=== PATIENT | male | born 1965 ===

== ENCOUNTER 2016-09-22 18:59 | Observation (INO) | payer OTHER ==
[2016-09-22 19:00] VITALS: BMI 31.6
[2016-09-22 20:15] VITALS: BP 120/76; PULSE 70; RESP 16; TEMP 97.4; O2SAT 100
[2016-09-22] MEDS ORDERED: Iohexol 240 (50 ml) PO ONE (20:32)
[2016-09-22] MEDS ORDERED: Sodium Chloride 0.9% 1,000 ML IV STA (20:33)
[2016-09-22] MEDS ORDERED: Iohexol 240 (50 ml) ONE (21:14)
[2016-09-22 21:44] LABS: BASO # 0.1 K/uL (0.0-0.2); BASO % 0.9 % (0.0-2.0); EOS # 0.7 K/uL (0.0-0.7); LYMPH % 43.2 % (20.0-40.0); MEAN CELL VOLUME 91.9 fl (80.0-94.0); MEAN CORPUSCULAR HEMOGLOBIN 31.7 pg (27.0-31.0); MEAN CORPUSCULAR HGB CONC 34.5 g/dL (33.0-37.0); MEAN PLATELET VOLUME 8.9 fl (7.2-11.7); MONO # 0.5 K/uL (0.0-0.8); MONO % 5.9 % (0.0-10.0); NEUT # 3.8 K/uL (1.8-7.0); NRBC % 0.1 % (0.0-0.0); RED CELL DISTRIBUTION WIDTH 12.9 % (11.5-14.5); WHITE BLOOD COUNT 9.1 K/uL (4.8-10.8)
[2016-09-22 21:50] LABS: RBC URINE 2 /hpf (0-3); URINE BILIRUBIN NEGATIVE (NEGATIVE); URINE BLOOD NEGATIVE (NEGATIVE); URINE COLOR STRAW (YELLOW); URINE GLUCOSE (UA) NEG (Normal); URINE KETONE NEGATIVE (NEGATIVE); URINE LEUKOCYTE ESTERASE NEG Leu/uL (Negative); URINE PROTEIN NEGATIVE (NEGATIVE); URINE UROBILINOGEN 0.2-1.0 mg/dL (0.2-1.0); WBC URINE 1 /hpf (0-5)
[2016-09-22 21:52] LABS: ALB/GLOB RATIO 1.2 (1.0-2.1); ALKALINE PHOSPHATASE 96 U/L (38-126); ALT/SGPT 35 U/L (21-72); AST/SGOT 31 U/L (17-59); BILIRUBIN,TOTAL 0.8 mg/dl (0.2-1.3); BLOOD UREA NITROGEN 17 mg/dl (9-20); CALCIUM 8.4 mg/dL (8.4-10.2); CARBON DIOXIDE 23 mmol/L (22-30); CHLORIDE 105 mmol/L (98-107); GFR AFRICAN-AMERICAN > 60; GLUCOSE,RANDOM 94 mg/dL (75-110); LIPASE 85 U/L (23-300); POTASSIUM 3.9 MMOL/L (3.6-5.0); SODIUM 137 mmol/l (132-148); TOTAL PROTEIN 7.6 G/DL (6.3-8.2)
--- NOTE | 2016-09-22 22:07 | ED PDOC ---
HPI:Nausea, Vomiting, Diarrhea Time Seen by Provider: 09/22/16 20:20 Chief Complaint (Nursing): GI Problem Chief Complaint (Provider): Vomiting/Diarrhea History Per: Patient History/Exam Limitations: no limitations Onset/Duration Of Symptoms: Days (x2) Current Symptoms Are (Timing): Still Present Associated Symptoms: Vomiting, Diarrhea Additional Complaint(s): 51 year old male presents to ED with complaints of diarrhea and vomiting x2 days. Notes that he had x2 episodes of hematochezia today and vomited x1 episode with a small amount of blood yesterday. (-) nausea, (+) LLQ pain that radiates across entire abdomen and bilateral back pain. PCP: FAMILY PROVIDER,NO Past Medical History Reviewed: Historical Data, Nursing Documentation, Vital Signs Vital Signs: Last Vital Signs Temp 97.4 F L 09/22/16 20:13 Pulse 70 09/22/16 20:13 Resp 16 09/22/16 20:13 BP 120/76 09/22/16 20:13 Pulse Ox 100 09/22/16 20:13 - Medical History PMH: No Chronic Diseases Denies: Chronic Kidney Disease - Surgical History Surgical History: No Surg Hx - Family History Family History: States: No Known Family Hx - Home Medications Home Medications: Ambulatory Orders Medication Instructions Recorded Dicyclomine [Bentyl] 10 mg PO QID #20 cap 09/23/16 Omeprazole 20 mg PO DAILY #30 ecc 09/23/16 - Allergies Allergies/Adverse Reactions: Allergies Allergy/AdvReac Type Severity Reaction Status Date / Time No Known Allergies Allergy Verified 09/22/16 20:13 Review of Systems ROS Statement: Except As Marked, All Systems Reviewed And Found Negative Gastrointestinal: Positive for: Vomiting (with small amount of blood), Abdominal Pain (LLQ pain radiating across entire abdomen), Diarrhea, Hematochezia. Negative for: Nausea Musculoskeletal: Positive for: Back Pain (bilateral) Physical Exam - Reviewed Nursing Documentation Reviewed: Yes Vital Signs Reviewed: Yes - Physical Exam Appears: Positive for: Non-toxic, No Acute Distress (Obese) Head Exam: Positive for: ATRAUMATIC Skin: Positive for: Normal Color Eye Exam: Positive for: Normal appearance ENT: Positive for: Normal ENT Inspection Neck: Positive for: Normal Cardiovascular/Chest: Positive for: Regular Rate, Rhythm. Negative for: Murmur Respiratory: Positive for: Normal Breath Sounds. Negative for: Respiratory Distress Gastrointestinal/Abdominal: Positive for: Soft, Tenderness (mild LLQ tenderness) Extremity: Positive for: Normal ROM. Negative for: Deformity Neurologic/Psych: Positive for: Alert, Oriented. Negative for: Motor/Sensory Deficits - Laboratory Results Result Diagrams: 09/22/16 21:30 09/22/16 21:30 - ECG O2 Sat by Pulse Oximetry: 100 (RA) Pulse Ox Interpretation: Normal Medical Decision Making Medical Decision Makin Initial impression: diverticulitis v diverticulosis Initial plan: * CTA A/P * Labs * Lipase * Morphine 2mg IVP * Morphine 2mg IVP * NS IV * Iohexol 50mL PO * Protonix Inj 40mg IVP * Admit ED OBS * UA 2347: CT A/P impression: 1. 4 mm pleural based nodule left lower lobe. This is unchanged. For low-risk patients, no follow-up is necessary. For high-risk patients (smoking history or other known risk factors) recommend CT at 12 months and if unchanged, no further follow-up. 2. Gallstones. Gallbladder otherwise unremarkable. 3. Bladder wall is mildly prominent in thickness which may be due to its decompressed state or due to cystitis. 0055: Patient feeling better and stable for d/c. Advised patient to f/u in the clinic and patient was given a copy of the CT report. Return to the ED for worsening or concerning symptoms. Instructed patient to urgently f/u for colonoscopy. Patient states he has been taking ibuprofen every night recently because of joint pain. Advised patient to stop taking NSAIDs and take Tylenol instead. Scribe Attestation: Documented by Areli Collins acting as a scribe for Ben Oliveira MD. Scribe Attestation: All medical record entries made by the Scribe were at my direction and personally dictated by me. I have reviewed the chart and agree that the record accurately reflects my personal performance of the history, physical exam, medical decision making, and the department course for this patient. I have also personally directed, reviewed, and agree with the discharge instructions and disposition. ED OBSERVATION Date of observation admission: 09/22/16 Time of observation admission: 20:48 - Observation admission statement Patient is being placed in observation because:: Pending CTA A/P - Goals of Observation Goals of observation are:: CT results Disposition - Clinical Impression Clinical Impression: Abdominal pain, GI bleed - Patient ED Disposition Is Patient to be Admitted: No Counseled Patient/Family Regarding: Studies Performed, Diagnosis, Need For Followup - Disposition Disposition: Routine/Home Disposition Time: 00:58 Condition: STABLE
[2016-09-22] MEDS ORDERED: Sodium Chloride 0.9% 50 ML IV ONE (23:05)
[2016-09-22] MEDS ORDERED: Iohexol 300 100 ML IJ ONE (23:05)
--- NOTE | 2016-09-23 08:48 | CT ---
PROCEDURE: CT Abdomen and Pelvis with contrast HISTORY: LLQ pain radiating to R, blood in stool COMPARISON: 04/15/2016 CT abdomen and pelvis and abdominal ultrasound. TECHNIQUE: Contrast dose: 95 cc Omnipaque 300 Radiation dose: Total exam DLP = 1001.36 MGy-cm. This CT exam was performed using one or more of the following dose reduction techniques: Automated exposure control, adjustment of the mA and/or kV according to patient size, and/or use of iterative reconstruction technique. FINDINGS: LOWER THORAX: No significant interval change compared to the prior examination(s). LIVER: Unremarkable. No gross lesion or ductal dilatation. GALLBLADDER AND BILE DUCTS: Cholelithiasis without CT evidence of acute cholecystitis. PANCREAS: Unremarkable. No gross lesion or ductal dilatation. SPLEEN: Unremarkable. ADRENALS: Unremarkable. No mass. KIDNEYS AND URETERS: Unremarkable. No hydronephrosis. No solid mass. VASCULATURE: Unremarkable. No aortic aneurysm. BOWEL: Unremarkable. No obstruction. No gross mural thickening. APPENDIX: Normal appendix. PERITONEUM: Unremarkable. No free fluid. No free air. LYMPH NODES: Unremarkable. No enlarged lymph nodes. BLADDER: Unremarkable. REPRODUCTIVE: Unremarkable. BONES: No acute fracture. OTHER FINDINGS: None. IMPRESSION: Cholelithiasis without CT evidence of acute cholecystitis. No significant interval change compared to the prior examination(s). Concordant results (preliminary interpretation) provided by [facility]. Procedure Completed: 23:24 Preliminary ([facility]) Report: Dictated and Authenticated: 23:47 Final Interpretation: 08:46. September 23, 2016.
== END 2016-09-23 00:50 | disposition home or self-care (01) ==
LOC: H.ER 18:59 → H.EROBSV 20:48
PROVIDERS: ADMIT Emergency Medicine; ATTEND Emergency Medicine
DX: R10.9 Unspecified abdominal pain (principal); K92.2 Gastrointestinal hemorrhage, unspecified

== ENCOUNTER 2017-07-27 20:05 | Emergency (ER) | payer OTHER ==
[2017-07-27 20:06] VITALS: BMI 31.6
[2017-07-27 20:27] VITALS: RESP 16
[2017-07-27] MEDS ORDERED: Sodium Chloride 0.9% 1,000 ML IV STA (21:42)
[2017-07-27] MEDS ORDERED: Morphine 4 MG/ML VIAL ONE (21:49)
[2017-07-27 22:20] LABS: BASO # 0.1 K/uL (0.0-0.2); BASO % 0.9 % (0.0-2.0); EOS # 0.1 K/uL (0.0-0.7); EOS % 1.4 % (0.0-4.0); HEMOGLOBIN 14.7 g/dL (12.0-18.0); LYMPH # 4.1 K/uL (1.0-4.3); LYMPH % 39.3 % (20.0-40.0); MEAN CELL VOLUME 91.7 fl (80.0-94.0); MEAN CORPUSCULAR HEMOGLOBIN 31.7 pg (27.0-31.0); MEAN CORPUSCULAR HGB CONC 34.5 g/dL (33.0-37.0); MEAN PLATELET VOLUME 8.6 fl (7.2-11.7); MONO # 0.7 K/uL (0.0-0.8); MONO % 6.3 % (0.0-10.0); NEUT # 5.4 K/uL (1.8-7.0); NEUT % 52.1 % (50.0-75.0); NRBC % 0.2 % (0.0-0.0); RBC 4.63 Mil/uL (4.40-5.90); RED CELL DISTRIBUTION WIDTH 12.5 % (11.5-14.5); WHITE BLOOD COUNT 10.4 K/uL (4.8-10.8)
--- NOTE | 2017-07-27 22:20 | ED PDOC ---
HPI: Abdomen Time Seen by Provider: 07/27/17 21:11 Chief Complaint (Nursing): Abdominal Pain Chief Complaint (Provider): Abdominal Pain History Per: Patient History/Exam Limitations: no limitations Onset/Duration Of Symptoms: Days (x2 weeks) Current Symptoms Are (Timing): Still Present Additional Complaint(s): 51 y/o male with a past medical history of gastritis, who presents to the ED complaining of RUQ and epigastric pain x2 weeks. Patient states pain is worse today and is non-radiating. Reports a few episodes of vomiting over the past 2 weeks, but none today. Reports constipation x2 days. Denies fever. Patient states he knows he has gallbladder stones and reports a history of gallbladder problems in the past. Of Note, patient reports seeing Dr. Mccollum as GI in the past. Also reports having a colonoscopy and endoscopy done recently. Past Medical History Reviewed: Historical Data, Nursing Documentation, Vital Signs Vital Signs: Last Vital Signs Temp 97.7 F 07/28/17 00:52 Pulse 67 07/28/17 00:52 Resp 16 07/28/17 00:52 BP 126/69 07/28/17 00:52 Pulse Ox 100 07/28/17 01:18 - Medical History PMH: Gastritis Denies: Chronic Kidney Disease - Surgical History Surgical History: No Surg Hx - Family History Family History: States: Unknown Family Hx - Home Medications Home Medications: Ambulatory Orders Medication Instructions Recorded Acetaminophen [Pain Reliever] 500 mg PO Q4 #30 tablet 09/23/16 Dicyclomine [Bentyl] 10 mg PO QID #20 cap 09/23/16 Omeprazole 20 mg PO DAILY #30 ecc 09/23/16 Famotidine [Pepcid] 20 mg PO Q12 #14 tab 03/11/17 Acetaminophen [Pain Reliever] 500 mg PO Q4 #30 tablet 07/28/17 Famotidine [Pepcid] 20 mg PO BID #20 tab 07/28/17 Omeprazole 20 mg PO DAILY #30 capsule. 07/28/17 - Allergies Allergies/Adverse Reactions: Allergies Allergy/AdvReac Type Severity Reaction Status Date / Time No Known Allergies Allergy Verified 07/27/17 20:26 Review of Systems ROS Statement: Except As Marked, All Systems Reviewed And Found Negative Constitutional: Negative for: Fever Gastrointestinal: Positive for: Vomiting, Abdominal Pain, Constipation Physical Exam - Reviewed Nursing Documentation Reviewed: Yes Vital Signs Reviewed: Yes - Physical Exam Appears: Positive for: Non-toxic, No Acute Distress Head Exam: Positive for: ATRAUMATIC, NORMAL INSPECTION, NORMOCEPHALIC Skin: Positive for: Normal Color, Warm, Dry. Negative for: Rash Eye Exam: Positive for: EOMI, Normal appearance, PERRL ENT: Positive for: Normal ENT Inspection Neck: Positive for: Normal, Painless ROM, Supple Cardiovascular/Chest: Positive for: Regular Rate, Rhythm. Negative for: Murmur Respiratory: Positive for: Normal Breath Sounds. Negative for: Respiratory Distress Gastrointestinal/Abdominal: Positive for: Tenderness (RUQ and epigastric) Back: Positive for: Normal Inspection. Negative for: L CVA Tenderness, R CVA Tenderness, Vertebral Tenderness Extremity: Positive for: Normal ROM. Negative for: Pedal Edema, Deformity Neurologic/Psych: Positive for: Alert, Oriented. Negative for: Motor/Sensory Deficits - Laboratory Results Result Diagrams: 07/27/17 22:15 07/27/17 22:15 - ECG O2 Sat by Pulse Oximetry: 100 (RA) Pulse Ox Interpretation: Normal Medical Decision Making Medical Decision Making: Time: 21:42 Initial Impression: Abdominal pain. Differential diagnoses include, but are not limited to acute cholecystitis, pancreatitis, gastritis, and other conditions which will be considered. Initial Plan: --EKG --BMP --Troponin I --CBC w/ differential --CXR --addiction social worker --Reevaluation Time: 22:26 US ABDOMEN FINDINGS: Liver: Fatty infiltration. No mass. No intrahepatic ductal dilatation. Gallbladder: Contracted. Gallstones. No definite wall thickening. No pericholecystic fluid. No sonographic Eduardo's sign. Common bile duct: No dilatation. No stones. Pancreas: Unremarkable as visualized. Right kidney: Normal echogenicity. No hydronephrosis. IMPRESSION: 1. Cholelithiasis. 2. Incidental/non-acute findings are described above. Time: 00:00 Patient signed out to Dr. Oliveira pending abdominal CT. Scribe Attestation: Documented by Loco Parks, acting as a scribe for Ced Olson MD. Provider Scribe Attestation: All medical record entries made by the Scribe were at my direction and personally dictated by me. I have reviewed the chart and agree that the record accurately reflects my personal performance of the history, physical exam, medical decision making, and the department course for this patient. I have also personally directed, reviewed, and agree with the discharge instructions and disposition. Disposition - Clinical Impression Clinical Impression: Gastritis, Cholelithiasis - Patient ED Disposition Is Patient to be Admitted: Transfer of Care Counseled Patient/Family Regarding: Studies Performed, Diagnosis - Disposition Referrals: [facility] [Outside] Ben Kingsley MD [Family Provider] - Disposition: Transfer of Care Disposition Time: 00:00 Condition: STABLE Prescriptions: Acetaminophen [Pain Reliever] 500 mg PO Q4 #30 tablet Famotidine [Pepcid] 20 mg PO BID #20 tab Omeprazole 20 mg PO DAILY #30 capsule.dr Instructions: Gastritis, Gallstones Forms: [facility] (Nepali) Print Language: ANGUILLAN Patient Signed Over To: Ben Oliveira Handoff Comments: pending abdominal CT
--- NOTE | 2017-07-27 22:26 | US ---
EXAM: US Abdomen Limited, Right Upper Quadrant CLINICAL HISTORY: 51 years old, male; Pain; Abdominal pain; Epigastric; Additional info: Ruq pain TECHNIQUE: Real-time ultrasound of the right upper quadrant with image documentation. COMPARISON: No relevant prior studies available. FINDINGS: Liver: Fatty infiltration. No mass. No intrahepatic ductal dilatation. Gallbladder: Contracted. Gallstones. No definite wall thickening. No pericholecystic fluid. No sonographic Eduardo's sign. Common bile duct: No dilatation. No stones. Pancreas: Unremarkable as visualized. Right kidney: Normal echogenicity. No hydronephrosis. IMPRESSION: 1. Cholelithiasis. 2. Incidental/non-acute findings are described above.
[2017-07-27 22:29] LABS: ALB/GLOB RATIO 1.1 (1.0-2.1); ALBUMIN 4.1 g/dL (3.5-5.0); GFR AFRICAN-AMERICAN > 60; GFR NON-AFRICAN AMERICAN > 60; LIPASE 80 U/L (23-300)
[2017-07-27 22:31] LABS: ALT/SGPT 49 U/L (21-72); AST/SGOT 27 U/L (17-59); BLOOD UREA NITROGEN 21 mg/dl (9-20)
[2017-07-27] MEDS ORDERED: Alum-Mag Hydrox-Simethicone Susp (30 mL) PO ONE (22:42)
[2017-07-27] MEDS ORDERED: Alum-Mag Hydrox-Simethicone Susp (30 mL) ONE (23:01)
[2017-07-27] MEDS ORDERED: Sodium Chloride 0.9% 100 ML ONE (23:17)
[2017-07-27] MEDS ORDERED: Iohexol 300 100 ML IJ ONE (23:17)
--- NOTE | 2017-07-28 00:21 | ED PDOC ---
"- Laboratory Results Result Diagrams: 07/27/17 22:15 07/27/17 22:15 - ECG O2 Sat by Pulse Oximetry: 100 (RA) Pulse Ox Interpretation: Normal Medical Decision Making Medical Decision Making: Time: 00:00 Patient signed out to me by pending abdominal CT. 1:00 COMPARISON: CT - ABD PELVIS IV CONTRAST ONLY 2017-03-11 00:13 FINDINGS: Lower thorax: Minimal atelectasis. RLL calcified granuloma. 0.5 cm LEFT lower lobe nodule, stable. ABDOMEN: Liver: Fatty infiltration. Tiny calcification. Gallbladder and bile ducts: Noncalcified gallstones. No significant ductal dilation. Pancreas: No ductal dilation. No mass. Spleen: No splenomegaly. Adrenals: Myelolipoma of RIGHT adrenal gland. Kidneys and ureters: No mass. No hydronephrosis. Stomach and bowel: No definite mural thickening. No obstruction. Appendix: Normal caliber. No inflammation. PELVIS: Bladder: Unremarkable. Reproductive: Enlarged prostate gland. ABDOMEN and PELVIS: Intraperitoneal space: No significant fluid collection. No free air. ZEFERINO JOHN | Final Radiology Report CONFIDENTIALITY STATEMENT This report is intended only for use by the referring physician, and only in accordance with law. If you received this in error, call [phone]. Page 2 of 2 Bones/joints: No acute fracture. Soft tissues: Tiny umbilical hernia containing fat. Vasculature: Minimal atherosclerotic disease of iliac arteries. No aneurysm. Lymph nodes: No pathologically enlarged lymph nodes. IMPRESSION: 1. No definite acute intraabdominal abnormality. 2. Prostate enlargement. Followup as clinically warranted. 3. Incidental/non-acute findings are described above. Thank you for allowing us to participate in the care of your patient. Dictated and Authenticated by: Brice Nesbitt MD 07/28/2017 12:30 AM Eastern Time ([place] & [place]) Patient resting comfortably, states he his pain improved. Advised to followup with Dr. Mccollum regarding gallstones. Patient has hx of gastritis, will encourage pepcid for gastritis and followup with [facility] clinic tomorrow. Patient tolerating PO, steady gait. Scribe Attestation: Documented by Juan Oreilly, acting as a scribe for Ben Oliveira MD Provider Scribe Attestation: All medical record entries made by the Scribe were at my direction and personally dictated by me. I have reviewed the chart and agree that the record accurately reflects my personal performance of the history, physical exam, medical decision making, and the department course for this patient. I have also personally directed, reviewed, and agree with the discharge instructions and disposition. Disposition - Clinical Impression Clinical Impression: Gastritis, Cholelithiasis - POA Present On Arrival: None - Disposition Referrals: [facility] [Outside] Ben Kingsley MD [Family Provider] - Disposition: Routine/Home Disposition Time: 01:17 Condition: IMPROVED Prescriptions: Acetaminophen [Pain Reliever] 500 mg PO Q4 #30 tablet Famotidine [Pepcid] 20 mg PO BID #20 tab Omeprazole 20 mg PO DAILY #30 capsule. Instructions: Gastritis, Gallstones Forms: [employer] (Urdu) Print Language: KENYAN"
--- NOTE | 2017-07-28 00:31 | CT ---
EXAM: CT Abdomen and Pelvis With Intravenous Contrast CLINICAL HISTORY: 51 years old, male; Pain; Abdominal pain; Generalized TECHNIQUE: Axial computed tomography images of the abdomen and pelvis with intravenous contrast. All CT scans at this facility use one or more dose reduction techniques, viz.: automated exposure control; ma/kV adjustment per patient size (including targeted exams where dose is matched to indication; i.e. head); or iterative reconstruction technique. Coronal and sagittal reformatted images were created and reviewed. CONTRAST: 95 mL of omniaue 300 administered intravenously. COMPARISON: CT - ABD PELVIS IV CONTRAST ONLY 2017-03-11 00:13 FINDINGS: Lower thorax: Minimal atelectasis. RLL calcified granuloma. 0.5 cm LEFT lower lobe nodule, stable. ABDOMEN: Liver: Fatty infiltration. Tiny calcification. Gallbladder and bile ducts: Noncalcified gallstones. No significant ductal dilation. Pancreas: No ductal dilation. No mass. Spleen: No splenomegaly. Adrenals: Myelolipoma of RIGHT adrenal gland. Kidneys and ureters: No mass. No hydronephrosis. Stomach and bowel: No definite mural thickening. No obstruction. Appendix: Normal caliber. No inflammation. PELVIS: Bladder: Unremarkable. Reproductive: Enlarged prostate gland. ABDOMEN and PELVIS: Intraperitoneal space: No significant fluid collection. No free air. Bones/joints: No acute fracture. Soft tissues: Tiny umbilical hernia containing fat. Vasculature: Minimal atherosclerotic disease of iliac arteries. No aneurysm. Lymph nodes: No pathologically enlarged lymph nodes. IMPRESSION: 1. No definite acute intraabdominal abnormality. 2. Prostate enlargement. Followup as clinically warranted. 3. Incidental/non-acute findings are described above.
[2017-07-28 00:52] VITALS: BP 126/69; PULSE 67; TEMP 97.7
[2017-07-28 01:17] VITALS: O2SAT 100
--- NOTE | 2017-07-28 11:59 | CARD ---
APPROVED REPORT EKG Measurement Heart [id number] <Conclusion> Normal sinus rhythm Possible Left atrial enlargement Nonspecific T wave abnormality Abnormal ECG
== END 2017-07-28 02:08 | disposition home or self-care (01) ==
LOC: H.ER 20:05
DX: K29.70 Gastritis, unspecified, without bleeding (principal); K80.20 Calculus of gallbladder without cholecystitis without obstruction; K76.0 Fatty (change of) liver, not elsewhere classified; N40.0 Benign prostatic hyperplasia without lower urinary tract symptoms
CPT/HCPCS: 74177; 76705; 80053; 83690; 85025; 87040; 93005; 96374; 96375; 99284; J2270; J7040; Q9967

== ENCOUNTER 2017-08-18 16:30 | Emergency (ER) | payer SELFPAY ==
[2017-08-18 16:30] VITALS: BMI 31.6
[2017-08-18 16:40] VITALS: RESP 16; O2SAT 100
--- NOTE | 2017-08-18 19:23 | ED PDOC ---
HPI: Abdomen Time Seen by Provider: 08/18/17 19:04 Chief Complaint (Nursing): Abdominal Pain Chief Complaint (Provider): Abdominal pain History Per: Patient History/Exam Limitations: no limitations Onset/Duration Of Symptoms: Days (x1 week) Current Symptoms Are (Timing): Still Present Location Of Pain/Discomfort: Diffuse Quality Of Discomfort: Cramping Associated Symptoms: Vomiting (x2), Diarrhea (x3). denies: Urinary Symptoms Additional Complaint(s): Maxi Heller is a 51 year old male, with a past medical history of pre- diabetes, who presents to the emergency department for evaluation of crampy diffuse abdominal pain for the past week. Patient reports he had x3 episodes of diarrhea and x2 episodes of nonbloody, nonbilious vomiting during this time. He states today his stool was dark, which prompted concern for ED visit. 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 He denies any abdominal surgeries, fever, chills, recent travel, sick contacts, rash, chest pain, SOB, cough, or urinary symptoms. No further medical complaints. PMD: None provided Past Medical History Reviewed: Historical Data, Nursing Documentation, Vital Signs Vital Signs: Last Vital Signs Temp 97.7 F 08/18/17 16:37 Pulse 104 H 08/18/17 16:37 Resp 16 08/18/17 16:37 BP 126/80 08/18/17 16:37 Pulse Ox 100 08/18/17 19:35 - Medical History PMH: Diabetes (pre-diabetes), Gastritis Denies: Chronic Kidney Disease - Surgical History Other surgeries: right shoulder and left knee procedure - Family History Family History: States: Unknown Family Hx - Social History Current smoker - smoking cessation education provided: Yes (4 cigarettes per day ) Alcohol: None Drugs: Denies - Home Medications Home Medications: Ambulatory Orders Medication Instructions Recorded Acetaminophen [Pain Reliever] 500 mg PO Q4 #30 tablet 09/23/16 Dicyclomine [Bentyl] 10 mg PO QID #20 cap 09/23/16 Omeprazole 20 mg PO DAILY #30 ecc 09/23/16 Famotidine [Pepcid] 20 mg PO Q12 #14 tab 03/11/17 Acetaminophen [Pain Reliever] 500 mg PO Q4 #30 tablet 07/28/17 Famotidine [Pepcid] 20 mg PO BID #20 tab 07/28/17 Omeprazole 20 mg PO DAILY #30 capsule. 07/28/17 - Allergies Allergies/Adverse Reactions: Allergies Allergy/AdvReac Type Severity Reaction Status Date / Time No Known Allergies Allergy Verified 07/27/17 20:26 Review of Systems ROS Statement: Except As Marked, All Systems Reviewed And Found Negative Constitutional: Negative for: Fever, Chills Gastrointestinal: Positive for: Vomiting (x2), Abdominal Pain (diffused cramp), Diarrhea (x3), Other (dark stool) Genitourinary Male: Negative for: Dysuria, Frequency, Incontinence Physical Exam - Reviewed Nursing Documentation Reviewed: Yes Vital Signs Reviewed: Yes - Physical Exam Rectal: Positive for: Rectal Tone Is: (firm), Blood Streaked Stool, Hemorrhoids (external, nonthrombosed to 2-6oclock position (-) tenderness), Other (Pawan, ED RN, chaperoned by entire rectal examination) Comments: GENERAL APPEARANCE: Patient is awake, alert, oriented x 3, in mild painful distress. Non-toxic appearing. SKIN: Warm, dry; (-) cyanosis. EYES: (-) conjunctival pallor, (-) scleral icterus. ENMT: Mucous membranes moist. NECK: Supple, FROM (-) tenderness, (-) stiffness CHEST AND RESPIRATORY: CTA B/L ; (-) rales, (-) rhonchi, (-) wheezes; breath sounds equal bilaterally, even and unlabored. HEART AND CARDIOVASCULAR: (-) irregularity; (-) murmur, (-) gallop. ABDOMEN AND GI: (-) distention. Bowel sounds active x4; [+] tenderness in 4 quadrants. (+) guarding on LLQ and LUQ, (-) rebound, (-) palpable masses, (-) CVA tenderness EXTREMITIES: (-) deformity, (-) edema, (+) distal pulses. NEURO AND PSYCH: Mental status as above; (-) focal findings. - Laboratory Results Result Diagrams: 08/18/17 19:30 08/18/17 19:30 - ECG O2 Sat by Pulse Oximetry: 100 (RA) Pulse Ox Interpretation: Normal Medical Decision Making Medical Decision Making: Initial Impression: Abdominal pain, vomiting and diarrhea. Initial Plan: --Abd Pelvis PO & IV contrast [CT] --CMP --Lipase --Urine dipstick --CBC w/ differential --Bentyl 20 mg PO --Pepcid 40 mg IVP --Toradol 30 mg IVP --Zofran ODT 8 mg PO --Occult blood, stool --Reevaluation 20:00 -Patient's care will be transferred to Colby Barber PA-C, pending CT/lab results, re-evaluation, and further disposition. Scribe Attestation: Documented by Patrick Briseno, acting as a scribe for Nel Feng PA-C Provider Scribe Attestation: All medical record entries made by the Scribe were at my direction and personally dictated by me. I have reviewed the chart and agree that the record accurately reflects my personal performance of the history, physical exam, medical decision making, and the department course for this patient. I have also personally directed, reviewed, and agree with the discharge instructions and disposition. Disposition - Clinical Impression Clinical Impression: Abdominal pain, Vomiting, Diarrhea - Patient ED Disposition Is Patient to be Admitted: Transfer of Care (Jailene Barber PA-C pending lab/ CT results and re-evaluation.) - Disposition Disposition: Transfer of Care Disposition Time: 20:00 Condition: FAIR Forms: [employer] (Kyrgyz)
[2017-08-18] MEDS ORDERED: Iohexol 240 (50 ml) PO STA (19:36)
[2017-08-18] MEDS ORDERED: Iohexol 240 (50 ml) ONE (19:38)
[2017-08-18 20:00] LABS: BASO # 0.1 K/uL (0.0-0.2); BASO % 0.7 % (0.0-2.0); EOS # 0.2 K/uL (0.0-0.7); EOS % 1.7 % (0.0-4.0); HEMOGLOBIN 14.3 g/dL (12.0-18.0); LYMPH # 3.9 K/uL (1.0-4.3); MEAN CELL VOLUME 91.3 fl (80.0-94.0); MEAN CORPUSCULAR HEMOGLOBIN 32.2 pg (27.0-31.0); MEAN CORPUSCULAR HGB CONC 35.2 g/dL (33.0-37.0); MEAN PLATELET VOLUME 8.7 fl (7.2-11.7); MONO # 0.5 K/uL (0.0-0.8); NEUT # 4.4 K/uL (1.8-7.0); NEUT % 48.6 % (50.0-75.0); NRBC % 0.2 % (0.0-0.0); RBC 4.44 Mil/uL (4.40-5.90); RED CELL DISTRIBUTION WIDTH 12.6 % (11.5-14.5)
[2017-08-18 20:09] LABS: ALBUMIN 3.9 g/dL (3.5-5.0); ALT/SGPT 53 U/L (21-72); AST/SGOT 30 U/L (17-59); BLOOD UREA NITROGEN 23 mg/dl (9-20); CALCIUM 8.7 mg/dL (8.4-10.2); GFR AFRICAN-AMERICAN > 60; GFR NON-AFRICAN AMERICAN > 60; LIPASE 125 U/L (23-300)
[2017-08-18 20:10] LABS: VENOUS BLOOD GAS BASE EXCESS 1.9 mmol/L (0.0-2.0); VENOUS BLOOD GAS PCO2 50 mmHg (40-60); VENOUS BLOOD GAS PO2 36 mm/Hg (30-55); VENOUS BLOOD PH 7.36 (7.32-7.43)
[2017-08-18] MEDS ORDERED: Iohexol 300 100 ML IJ ONE (21:10)
[2017-08-18 21:46] VITALS: BP 115/63; PULSE 72; TEMP 97.8
--- NOTE | 2017-08-18 21:46 | ED PDOC ---
- Laboratory Results Result Diagrams: 08/18/17 19:30 08/18/17 19:30 - ECG O2 Sat by Pulse Oximetry: 100 (RA) - Progress ED Course And Treament: 1999 Signed out to me pending CT results and final disposition. 2119 On my initial evaluation, pt. reports having blood watery diarrhea starting yesterday with small specs of blood in vomitus. Pt. states he was dx with a "stomach ulcer" 2 years ago without endoscopy/colonscopy. States he's had abd pain for 3-4 months and he was seen in [facility] and is scheduled to have a endoscopy/ colonscopy in October 2017. Denies previous abd surgeries, fever, recent travel, sick contacts, chest pain, palpitations, hx of anemia, previous blood transfusions. Protonix 80mg IV ordered. 2239 CT abd/pelvis: Cholelithiasis. Prominent prostate. Recommend correlation with PSA level. Pt. informed of results. States he is feeling much better. Abd soft and non- tender. Case and labs d/w Dr. Youngblood who states pt. can be dc'd with outpt f/u. Disposition - Clinical Impression Clinical Impression: Gastroenteritis - POA Present On Arrival: None - Disposition Referrals: Niall Olson MD [Medical Doctor] - [facility] [place] [Outside] Disposition: Routine/Home Disposition Time: 23:00 Condition: IMPROVED Additional Instructions: Follow up with [facility] for further evaluation. Return to ED immediately if symptoms worsen. Prescriptions: Dicyclomine [Bentyl] 20 mg PO Q8 PRN #20 tab PRN Reason: abdominal pain Ondansetron ODT [Zofran ODT] 4 mg PO TID #20 odt Instructions: Viral Gastroenteritis, Adult (DC) Forms: [facility] ([place]) Print Language: BELGIAN
--- NOTE | 2017-08-18 22:33 | CT ---
EXAM: CT Abdomen and Pelvis With Intravenous Contrast EXAM DATE/TIME: 08/18/2017 7:11 PM CLINICAL HISTORY: 51 years old, male; Pain and signs and symptoms; Nausea and vomiting and other: Diarrhea; Abdominal pain; Generalized; Additional info: Diffuse abd pain, n/v/d TECHNIQUE: Axial computed tomography images of the abdomen and pelvis with intravenous contrast. All CT scans at this facility use one or more dose reduction techniques, viz.: automated exposure control; ma/kV adjustment per patient size (including targeted exams where dose is matched to indication; i.e. head); or iterative reconstruction technique. Coronal and sagittal reformatted images were created and reviewed. CONTRAST: 95 mL of [id number] administered intravenously. COMPARISON: CT - ABD PELVIS PO IV CONTRAST 2017-07-27 23:29 FINDINGS: There is a punctate pleural-based 5 mm left lower lung nodule unchanged from prior. There is a calcified right lower lung pleural-based nodule unchanged from prior. The liver is normal. The spleen is normal. The pancreas is normal. Possible gallstone. No pericholecystic inflammation. There is mild bilateral perinephric stranding similar to prior. The bowel appears normal. A normal appendix is identified axial images were 115 - 129, coronal images 70 through 72. The prostate is prominent. IMPRESSION: Cholelithiasis. Prominent prostate. Recommend correlation with PSA level.
== END 2017-08-18 23:36 | disposition home or self-care (01) ==
LOC: H.ER 16:30
DX: K52.9 Noninfective gastroenteritis and colitis, unspecified (principal); R73.03 Prediabetes; K80.20 Calculus of gallbladder without cholecystitis without obstruction
CPT/HCPCS: 74177; 80053; 82803; 83690; 85025; 96374; 96375; 99283; C9113; G0328; J1885; Q9966; Q9967